=== PATIENT | female | born 2000 | race Caucasian/White ===

== ENCOUNTER 2025-02-10 18:50 | Emergency (ER) | payer MEDICAID ==
[~2025-02-10] VITALS: Ht 167.6 cm; Wt 70.0 kg
[2025-02-10 18:56] VITALS: BP 116/57; TEMP 36.8; O2SAT 98
[2025-02-10 18:57] VITALS: PULSE 90; RESP 16; O2SAT 97
[2025-02-10 19:38] LABS: BASOPHILS % 0.4 % (0.0-2.0); EOSINOPHILS % 0.4 % (0.0-5.0); HEMATOCRIT. 37.1 % (36.0-48.0); HEMOGLOBIN. 11.7 g/dL (12.0-16.0); LYMPHOCYTES % 28.5 % (20.0-50.0); MEAN PLATELET VOLUME 8.4 fl (7.4-10.4); MONOCYTES % 6.8 % (2.0-8.0); NEUTROPHILS % 63.9 % (40.0-76.0); PLATELET 224 x1000/uL (130-400); RED BLOOD CELL COUNT 4.69 mill/uL (4.2-5.4); RED CELL DISTRIBUTION WIDTH 18.1 % (11.6-14.6)
[2025-02-10 19:52] LABS: CREATININE 0.9 mg/dL (0.6-1.0); UREA NITROGEN BLOOD 10 mg/dL (9-23)
[2025-02-10 19:54] LABS: ASPARTATE AMINOTRANSFERASE 21 IU/L (<34); BILIRUBIN DIRECT 0.1 mg/dL (<=3.0); TROPONIN I HIGH SENSITIVITY < 4 ng/L (3.0-34)
[2025-02-10 19:55] LABS: BILIRUBIN TOTAL 0.5 mg/dL (0.1-1.0); PROTEIN TOTAL 7.4 g/dL (6.0-8.3)
[2025-02-10] MEDS ORDERED: AZIT250T12 MT (20:41)
[2025-02-10] MEDS ORDERED: CEPH500C2 MT (20:41)
[2025-02-10] MEDS: AZITHROMYCIN 500 MG TABLET PO ONE (20:56)
[2025-02-10] MEDS: CEPHALEXIN 250MG CAPSULE PO ONE (20:57)
== END 2025-02-10 21:07 | disposition home or self-care (01) ==
LOC: ER 18:50
DX: J18.1 Lobar pneumonia, unspecified organism (principal); R06.02 Shortness of breath; Z79.899 Other long term (current) drug therapy
CPT/HCPCS: 36415; 71045; 80048; 80076; 83880; 84484; 85025; 93005; 99285